=== PATIENT | female | born 1940 | race Caucasian/White ===

== ENCOUNTER 2022-11-28 08:52 | Outpatient (CLI) | payer MEDICARE ==
[2022-11-28] MEDS ORDERED: Iopamidol 370 76% 100 ML VIAL ONE (09:00)
== END 2022-11-28 08:53 | disposition home or self-care (01) ==
LOC: NAV CT 08:52
PROVIDERS: ATTEND Family Medicine
DX: Z01.812 Encounter for preprocedural laboratory examination (principal); R10.12 Left upper quadrant pain; R10.30 Lower abdominal pain, unspecified; R14.0 Abdominal distension (gaseous); R11.0 Nausea; R16.1 Splenomegaly, not elsewhere classified
CPT/HCPCS: 36415; 74177; 82565; Q9967